=== PATIENT | male | born 1990 | race Caucasian/White ===

== ENCOUNTER 2022-01-01 03:17 | Emergency (ER) | payer BC, OTHER ==
[~2022-01-01] VITALS: Ht 190.5 cm; Wt 136.0 kg
[2022-01-01 03:24] VITALS: BP 156/91
[2022-01-01] MEDS ORDERED: LORazepam 0.5 MG (ATIVAN) TABLET PO STA (03:36)
--- NOTE | 2022-01-01 03:55 | ED General ---
General Chief Complaint: Neurological Problems Stated Complaint: NUMBNESS IN RIGHT ARM Source of Information: Patient History of Present Illness Date Seen by Provider: Jan 01, 2022 Time Seen by Provider: 03:30 Initial Comments Patient is a 31-year-old male with history of anxiety who presents with right arm numbness starting several hours ago. 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 Patient states he normally does not drink caffeine. He does report some nausea but denies chest pain, sweats shortness of breath. No abdominal pain. No other acute symptoms or complaints. Timing/Duration: 1/2 Hour Severity: Mild Modifying Factors: improves with Other Associated Systoms: Other Allergies and Home Medications Allergies Coded Allergies: No Known Drug Allergies (Unverified , 01/01/22) Patient Home Medication List Home Medication List Reviewed: Yes Review of Systems Review of Systems Constitutional: see HPI EENTM: see HPI Respiratory: see HPI Cardiovascular: see HPI Gastrointestinal: see HPI Genitourinary: see HPI Musculoskeletal: see HPI Skin: see HPI Psychiatric/Neurological: See HPI Hematologic/Lymphatic: See HPI Immunological/Allergic: see HPI All Other Systems Reviewed Negative Unless Noted: Yes Past Igraick-Wgybhe-Bxekjh Hx Patient Social History Tobacco Use?: Yes Tobacco type used: Cigars Smoking Status: Light Tobacco Smoker Use of E-Cig and/or Vaping dev: No Substance use?: No Alcohol Use?: Yes Pt feels they are or have been: No Physical Exam Vital Signs Capillary Refill : Height, Weight, BMI Height: '" Weight: lbs. oz. kg; BMI Method: General Appearance: Anxious Eyes: Bilateral Eye Normal Inspection, Bilateral Eye PERRL, Bilateral Eye EOMI HEENT: PERRL/EOMI, Normal ENT Inspection Neck: Full Range of Motion, Normal Inspection, Supple Respiratory: Lungs Clear Cardiovascular: Regular Rate, Rhythm Gastrointestinal: Non Tender, Soft Neurologic/Psychiatric: Alert, Oriented x3 Focused Exam Sepsis Stage: Ruled Out Progress/Results/Core Measures Suspected Sepsis SIRS Temperature: Pulse: Respiratory Rate: Blood Pressure / Mean: Results/Orders My Orders Orders - MARIA INES RODGERS DO Ekg Tracing (01/01/22 03:36) Lorazepam Tablet (Ativan Tablet) (01/01/22 03:36) Vital Signs/I&O Capillary Refill : Departure Communication (Admissions) EKG: Normal sinus rhythm, no acute ST-T wave changes Patient symptoms consistent with anxiety. Denies exertional chest pain or shortness of breath. Recommendations are avoidance of caffeine, supportive care and PCP follow-up. Return precautions reviewed. Impression Primary Impression: Anxiety reaction Disposition: HOME, SELF-CARE Condition: Stable Departure-Patient Inst. Decision time for Depature: 03:53 Referrals: NO,LOCAL PHYSICIAN (PCP/Family) Primary Care Physician Patient Instructions: Anxiety, Adult ED Add. Discharge Instructions: You were evaluated in the emergency department for right arm and tenderness. Your symptoms are consistent with anxiety reaction. Please avoid caffeinated beverages, and go home and rest. Follow-up with local primary care provider if symptoms persist. Return to the ED if new or worsening symptoms peer All discharge instructions reviewed with patient and/or family. Voiced understanding. MARIA INES RODGERS DO Jan 01, 2022 03:55
== END 2022-01-01 04:03 | disposition home or self-care (01) ==
LOC: ER FS 03:19
DX: F41.1 Generalized anxiety disorder (principal); F17.290 Nicotine dependence, other tobacco product, uncomplicated
CPT/HCPCS: 93005